=== PATIENT | female | born 1940 | race Caucasian/White ===

== ENCOUNTER 2017-02-18 06:52 | Observation (INO) | payer OTHER ==
[2017-02-18] MEDS ORDERED: LIDO/EPI 1% **for epidural** 30 ML SDV ONE (07:16)
--- NOTE | 2017-02-18 07:23 | PDANEPAE ---
ANE History of Present Illness 76 yo F w thyroid nodule here for donovan thyroidectomy ANE Past Medical History - Cardiovascular History Hx Hypertension: Yes Hx Arrhythmias: No Hx Chest Pain: No Hx Coronary Artery / Peripheral Vascular Disease: No Hx CHF / Valvular Disease: No Hx Palpitations: No - Pulmonary History Hx COPD: No Hx Asthma/Reactive Airway Disease: No Hx Recent Upper Respiratory Infection: No Hx Oxygen in Use at Home: No - Neurologic History Hx Cerebrovascular Accident: No Hx Seizures: No Hx Dementia: No - Endocrine History Hx Diabetes: No - Renal History Hx Renal Disorders: No - Liver History Hx Hepatic Disorders: No - Neurological & Psychiatric Hx Hx Neurological and Psychiatric Disorders: No - Cancer History Hx Cancer: No - Congenital Disorder History Hx Congenital Disorders: No - GI History Hx Gastrointestinal Disorders: No - Chronic Pain History Chronic Pain: No ANE Review of Systems Review of systems is: negative - Exercise capacity METS (RN): 4 METS ANE Patient History - Allergies Allergies/Adverse Reactions: No Known Allergies Allergy (Unverified 02/06/17 14:41) - Home Medications Home medications: home medication list seen and reviewed Home Medications: Hydrochlorothiazide [HCTZ (*)] 12.5 mg PO Q72H 02/04/17 [Last Taken Unknown] Levothyroxine [Synthroid 137 mcg (*)] 137 mcg PO DAILY06 02/04/17 [Last Taken Unknown] Naproxen Sodium [Aleve 220 MG (*)] 220 mg PO DAILY PRN 02/13/17 [Last Taken Unknown] - NPO status NPO Since - Liquids (Date): 02/17/17 NPO Since - Liquids (Time): 18:00 NPO Since - Solids (Date): 02/17/17 NPO Since - Solids (Time): 18:00 - Anes Hx Anes Hx: no prior problems - Smoking Hx Smoking Status: Former smoker - Alcohol Use Alcohol Use: None - Family Anes Hx Family Anes Hx: none ANE Labs/Vital Signs - Vital Signs Blood Pressure: 167/98 Heart Rate: 78 Respiratory Rate: 13 O2 Sat (%): 97 Height: 165.1 cm Weight: 63.503 kg ANE Physical Exam - Airway Neck exam: FROM Mallampati Score: Class 2 Mouth exam: normal dental/mouth exam - Pulmonary Pulmonary: no respiratory distress, clear to auscultation - Cardiovascular Cardiovascular: regular rate and rhythym, no murmur, rub, or gallop - ASA Status ASA Status: II ANE Anesthesia Plan Anesthesia Plan: general endotracheal anesthesia
[2017-02-18] MEDS ORDERED: MIDAZOLAM 2 MG/2 ML VIAL IVP ONE (07:25)
[2017-02-18] MEDS ORDERED: PROPOFOL 200 MG/20 ML VIAL ONE ×2 (07:46)
[2017-02-18] MEDS ORDERED: fentaNYL 100 MCG/2 ML INJ ONE ×3 (07:46→10:56)
[2017-02-18] MEDS ORDERED: ROCURONIUM 50 MG/5 ML VIAL ONE (07:50)
--- NOTE | 2017-02-18 07:50 | PDGENHP ---
History & Physical Outpatient Chief Complaint: right thyroid mass History of Present Illness: Pt referred from [place] for right thyroid lobectomy. Pertinent Past, Social, Family History: Pt has new calcified nodule in right thyroid, presents for lobectomy for definitive diagnosis. Possible total thyroidectomy. Relevant Physical Exam: right thyroid fullness. Cardiorespiratory Assessment: lungs CTA. COR RRR no murmur
[2017-02-18] MEDS ORDERED: LIDOCAINE 2% 100 MG/5 ML SYR ONE (07:51)
[2017-02-18] MEDS ORDERED: DEXAMETHASONE 10 MG/ML VIAL IVP ONE (07:51)
[2017-02-18] MEDS ORDERED: ceFAZolin 2 GM/DEXTROSE 100 ML IV ONE (07:51)
--- NOTE | 2017-02-18 07:51 | PDHPUP ---
History & Physical Update H&P update statement: This history and physical update is based on an assessment of the patient which was completed after admission or registration (within 24 hours), but prior to the surgery/procedure. H&P update: H&P reviewed & patient examined, no change in patient's condition since H&P completed
[2017-02-18] MEDS ORDERED: ONDANSETRON 4 MG/2 ML VIAL ONE (08:58)
[2017-02-18] MEDS ORDERED: DEXAMETHASONE 4 MG/ML VIAL ONE (08:58)
[2017-02-18] MEDS ORDERED: PROMETHAZINE HCL 25 MG/ML INJ IVP PRN (09:14)
[2017-02-18] MEDS ORDERED: ONDANSETRON 4 MG/2 ML VIAL IVP PRN (09:14)
[2017-02-18] MEDS ORDERED: OXYCODONE/APAP 5/325 TAB PO PRN (09:14)
[2017-02-18] MEDS ORDERED: ACETAMINOPHEN 500 MG TAB PO PRN (09:14)
[2017-02-18] MEDS ORDERED: NALOXONE HCL 0.4 MG/ML INJ IVP PRN (09:14)
[2017-02-18] MEDS ORDERED: SUGAMMADEX SODIUM 200 MG/2 ML VIAL IVP ONE (10:23)
--- NOTE | 2017-02-18 10:51 | POSTOPPROG ---
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
[2017-02-18] MEDS ORDERED: HYDROmorphONE/DILAUDID 1 MG/ML SYR ONE (10:56)
[2017-02-18] MEDS: fentaNYL 100 MCG/2 ML INJ IVP PRN ×2 (10:58→11:11)
[2017-02-18] MEDS: HYDROmorphONE/DILAUDID 1 MG/ML SYR IVP PRN ×2 (10:59→11:12)
[2017-02-18] MEDS ORDERED: HYDROCHLOROTHIAZIDE 12.5 MG CAP PO SCH (11:00)
--- NOTE | 2017-02-18 11:32 | GOP ---
[f rep st] OPERATIVE REPORT DATE OF OPERATION: 02/18/2017 SURGEON: Supa Tello MD PLASTERER HELPER: Norris Duarte MD. ANESTHESIA: General. 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 POSTOPERATIVE DIAGNOSIS: Miguel thyroiditis. PROCEDURE PERFORMED: 1. Right thyroid lobectomy. 2. Right central compartment neck dissection. FINDINGS: A smooth mass within the inferior lobe of the right side of the thyroid gland. Frozen se ction was notable to be benign Miguel thyroiditis with no evidence of malignancy. There were mul tiple enlarged lymph nodes in the right tracheoesophageal groove and extending off over the anterior aspect of the trachea. Therefore a central compartment neck dissection was performed due to my con cern that this was likely malignancy. The recurrent laryngeal nerve inferior and superior parathyro id glands were all identified and preserved. SPECIMENS: Right thyroid lobe and central compartment tissue. ESTIMATED BLOOD LOSS: Less than 50 cc. INDICATIONS: The patient is a 76-year-old woman referred by Dr. Jhoan Bonilla from her home in [place] . The patient has a remote history of removal of a benign mass from the left thyroid lobe but she d id not undergo left thyroid lobectomy. She now presents with nodules in the right thyroid lobe. Sh hawa has had multiple needle biopsies and she now has a new calcified lesion in the right inferior lobe of the thyroid gland. She wishes to have definitive diagnosis and presents for surgical interventi on in order to get a definitive diagnosis. DESCRIPTION OF PROCEDURE: Patient was taken to the OR and positively identified. Placed on monitor s and general anesthesia was induced. She was prepped and draped in the normal sterile fashion. In cision was marked along her old thyroidectomy scar. The old scar was excised. Dissection was natalia ed down through the level of the platysma. Scar tissue was divided. Superior and inferior subplaty smal flaps were then raised and secured. The strap muscles were divided in the midline and elevated off the thyroid gland. Meticulous dissection was then carried out as we isolated the superior vasc ular pedicle which was clamped, cut, and ligated with 2-0 silk. The middle thyroid vein was oversew n and divided. The thyroid gland was then rotated medially. She had an interesting lobulated patte rn to the thyroid gland. We were able to identify the recurrent laryngeal nerve and preserve it. T he thyroid gland was rotated medially. The inferior vascular pedicle was isolated, clamped, cut, an d ligated. The thyroid gland was then elevated off the trachea. There was minimal tissue at the is thmus, making me think that the previous surgery must have involved an excision of the left side of the isthmus. The tissue was then removed and sent for frozen section. Due to multiple large lymph nodes in the tracheoesophageal groove, I went ahead and performed a cent ral compartment neck dissection and following dissecting along the recurrent laryngeal nerve and the n removing the enlarged lymph nodes, both medial and lateral to the nerve, preserving the inferior p arathyroid gland which was directly adjacent to all this tissue. I then extended this off toward th e midline and excising some thymus tissue along with the lymph node tissue. At this point, the froz en section came back as benign. We irrigated the wound and made sure we had good hemostasis. A drain was placed through a separate stab incision and secured with a drain stitch. The wound was then closed with interrupted 3-0 Vicry l suture through the strap muscles, 4-0 Monocryl through the platysma and subcutaneous tissues, and 5-0 Prolene through the skin followed by a pressure dressing. The case was then terminated. The an esthetic discontinued. The patient tolerated procedure well. Dr. Duarte was present throughout the entire case and his assistance was critical in the safe completion of the operation. COMPLICATIONS: None. /[id number]/MODL
[2017-02-18] MEDS: D5W 1/2 NS W/ 20 KCl/L 1,000 ML IV SCH (13:22)
[2017-02-18] MEDS: OXYCODONE/APAP 5/325 TAB PO PRN (15:15)
[2017-02-18] MEDS: ONDANSETRON 4 MG/2 ML VIAL IVP PRN ×2 (15:43→19:33)
--- NOTE | 2017-02-18 17:27 | SOAPPROG ---
SOAP Progress Note Assessment/Plan: Assessment:76 year old female s/p thyroid lobectomy. Has headache this evening. Slightly elevated BP. - Call if BP continues to stay elevated -- will consult hospitalist if so - Tylenol ordered for headache - Will d/c tomorrow AM 02/18/17 17:25 Subjective: 76 year old female s/p thyroid lobectomy. Some headache. Slightly elevated BP despite HCTZ. Objective: Vital Signs Temp Pulse Resp BP Pulse Ox 36.4 C 90 16 162/101 H 98 02/18/17 15:02 02/18/17 17:17 02/18/17 17:17 02/18/17 17:17 02/18/17 17:17 02/17/17 02/18/17 02/19/17 05:59 05:59 05:59 Intake Total 1250 Output Total 50 Balance 1200 Voice strong, no stridor Neck flat ICD10 Worksheet Patient Problems: Problems Problem Status Onset H/O partial thyroidectomy Acute - ICD10 Problem Qualifiers (1) H/O partial thyroidectomy
[2017-02-18] MEDS: ACETAMINOPHEN 500 MG TAB PO PRN (19:37)
[2017-02-19] MEDS: D5W 1/2 NS W/ 20 KCl/L 1,000 ML IV SCH (02:46)
[2017-02-19] MEDS ORDERED: LEVOTHYROXINE 137 MCG TAB PO SCH (06:00)
[2017-02-19 07:34] VITALS: RESP 14
[2017-02-19] MEDS: OXYCODONE/APAP 5/325 TAB PO PRN (08:19)
[2017-02-19] MEDS: ACETAMINOPHEN 500 MG TAB PO PRN (08:29)
[2017-02-19 11:08] VITALS: BP 125/73; PULSE 77; TEMP 98.2; O2SAT 94
--- NOTE | 2017-02-19 12:57 | POSTANESTH ---
Post Anesthetic Evaluation Cardiovascular Status: Normal, Stable, Similar to Pre-Op Cond Respiratory Status: Normal, Stable, Similar to Pre-op Cond. Level of Consciousness/Mental Status: Can Participate in Eval, Alert and Oriented Pain Control: Adequate, Prn Tx Ordered Nausea/Vomiting Control: Adequate, Prn Tx Ordered Complications Possibly Related to Anesthesia: None Noted
--- NOTE | 2017-02-19 13:54 | SOAPPROG ---
SOAP Progress Note Assessment/Plan: pt s/p hemithyroidectomy. Doing very well. No hoarseness. Mild pain. O- dressing removed, drain removed Plan:Pt s/p hemithyroidecotmy. discussed post op care. F/u to have sutures removed in 5-7 days. 02/19/17 13:52 Objective: Vital Signs Temp Pulse Resp BP Pulse Ox 36.8 C 77 14 125/73 H 94 02/19/17 11:05 02/19/17 11:05 02/19/17 11:05 02/19/17 11:05 02/19/17 11:05 02/18/17 02/19/17 02/20/17 05:59 05:59 05:59 Intake Total 2050 500 Output Total 1705 950 Balance 575 -450 ICD10 Worksheet Patient Problems: Problems Problem Status Onset H/O partial thyroidectomy Acute
== END 2017-02-19 14:43 | disposition home or self-care (01) ==
LOC: F3E 06:52 → INTOOBSV 06:52 → F3E 10:35 → PREOBSVTOIN 10:37
PROVIDERS: ADMIT Otolaryngology; ATTEND Otolaryngology
DX: E06.3 Autoimmune thyroiditis (principal)
CPT/HCPCS: 38510; 60210; J0690; J1100; J1170; J2001; J2250; J2405; J2704; J3010